=== PATIENT | female | born 1945 | race Caucasian/White ===

== ENCOUNTER → 2020-10-26 | Outpatient (CLI) | payer MEDICARE ==
[~2020-10-26] MED LIST: ANORO ELLIPTA1 EACH INH; BAYER CHEWABLE81 MG PO; BREO ELLIPTA 11 EACH INH; BREZTRI AEROS10.7 GM INH; CITALOPRAM HBR20 MG PO; CLARITIN10 M2 PO; COZAAR 25MG TAB25 MG PO; IPRAT-ALBUT 0.5-3 ML NEB; LASIX20 MG PO; LIPITOR20 MG PO; LOSARTAN-HCTZ1 EAC1 PO; MEDROL DOSEPAK 24 MG PO; MELOXICAM7.5 MG PO; OMNICEF 300 MG300 MG PO; PLAVIX75 MG PO; PRAVASTATIN SOD20 MG PO; PREDNISONE 10 M10 MG PO; STOOL SOFTENER1 EACH PO; SYMBICORT 16010.2 GM INH; VENTOLIN HFA 66.7 GM INH; VITAMIN A AND1 EACH PO; VITAMIN C 500500 MG PO; VITAMIN D350 MCG PO
[2020-10-26 16:21] LABS: RED BLOOD COUNT 3.83 M/UL (4.00-5.10)
[2020-10-26 16:39] LABS: BUN/CREATININE RATIO 31 (0-10)
[2020-10-27 08:13] LABS: THYROXINE (T4) 7.6 ug/dL (4.5-12.0); VITAMIN D, 25-HYDROXY 32.3 ng/mL (30.0-100.0)
== END ==
LOC: LAB 15:17
PROVIDERS: Nurse Practitioner Family
DX: J44.9 Chronic obstructive pulmonary disease, unspecified (principal); I10 Essential (primary) hypertension; R53.83 Other fatigue; K57.92 Diverticulitis of intestine, part unspecified, without perforation or abscess without bleeding; E78.5 Hyperlipidemia, unspecified; E55.9 Vitamin D deficiency, unspecified; E53.8 Deficiency of other specified B group vitamins; R10.9 Unspecified abdominal pain
CPT/HCPCS: 36415; 80053; 80061; 82607; 84436; 84443; 84480; 85025

== ENCOUNTER → 2020-12-09 | Outpatient (CLI) | payer MEDICARE | LOC: RAD 10:00 | DX: R10.32 Left lower quadrant pain (principal); K57.30 Diverticulosis of large intestine without perforation or abscess without bleeding | CPT/HCPCS: 74270 ==

== ENCOUNTER 2021-01-05 06:21 | Inpatient (IN) | payer MEDICARE ==
[~2021-01-05] VITALS: Ht 149.9 cm; Wt 37.6 kg
[~2021-01-05 06:21] MED LIST changes: -ANORO ELLIPTA1 EACH INH; -BREZTRI AEROS10.7 GM INH; -CITALOPRAM HBR20 MG PO; -CLARITIN10 M2 PO; -COZAAR 25MG TAB25 MG PO; -IPRAT-ALBUT 0.5-3 ML NEB; -LASIX20 MG PO; -LIPITOR20 MG PO; -MEDROL DOSEPAK 24 MG PO; -OMNICEF 300 MG300 MG PO; -PREDNISONE 10 M10 MG PO; -SYMBICORT 16010.2 GM INH; -VITAMIN A AND1 EACH PO; -VITAMIN C 500500 MG PO; -VITAMIN D350 MCG PO
[2021-01-05 07:04] LABS: HEMOGLOBIN 12.9 gm/dl (12.3-15.3); RED BLOOD COUNT 4.16 M/UL (4.00-5.10); WHITE BLOOD COUNT 7.4 K/UL (4.5-11.0)
[2021-01-05 07:27] LABS: BUN/CREATININE RATIO 41 (0-10)
[2021-01-05] MEDS ORDERED: SYMBICORT 16010.2 GM INH (11:19)
[2021-01-05] MEDS ORDERED: COZAAR 25MG TAB25 MG PO (11:19)
[2021-01-05] MEDS ORDERED: VITAMIN A AND1 EACH PO (11:20)
[2021-01-06 02:36] LABS: HEMOGLOBIN 12.8 gm/dl (12.3-15.3); RED BLOOD COUNT 4.12 M/UL (4.00-5.10); WHITE BLOOD COUNT 5.8 K/UL (4.5-11.0)
[2021-01-06 03:39] LABS: BUN/CREATININE RATIO 42 (0-10)
[2021-01-07 02:40] LABS: BUN/CREATININE RATIO 43 (0-10)
[2021-01-07] MEDS ORDERED: OMNICEF 300 MG300 MG PO (09:43)
[2021-01-07] MEDS ORDERED: IPRAT-ALBUT 0.5-3 ML NEB (09:43)
[2021-01-07] MEDS ORDERED: MEDROL DOSEPAK 24 MG PO (09:43)
[2021-01-07] MEDS ORDERED: CLARITIN10 M2 PO (09:47)
== END 2021-01-07 12:45 | disposition home or self-care (01) | DRG 189 ==
LOC: ER1 06:21 → CDU 09:32 → PROG CARE 09:51
PROVIDERS: Family Medicine; Physician Assistant Medical; ADMIT Internal Medicine
PROC: 5A09457 Assistance with Respiratory Ventilation, 24-96 Consecutive Hours, Continuous Positive Airway Pressure (ICD-10-PCS; principal; 2021-01-05)
DX: J96.01 Acute respiratory failure with hypoxia (principal); E43 Unspecified severe protein-calorie malnutrition; J44.0 Chronic obstructive pulmonary disease with (acute) lower respiratory infection; Z68.1 Body mass index [BMI] 19.9 or less, adult; J20.9 Acute bronchitis, unspecified; I25.10 Atherosclerotic heart disease of native coronary artery without angina pectoris; C53.9 Malignant neoplasm of cervix uteri, unspecified; Z66 Do not resuscitate; K57.90 Diverticulosis of intestine, part unspecified, without perforation or abscess without bleeding; I10 Essential (primary) hypertension; J96.02 Acute respiratory failure with hypercapnia; F17.210 Nicotine dependence, cigarettes, uncomplicated; Z20.822 Contact with and (suspected) exposure to COVID-19; E78.5 Hyperlipidemia, unspecified; Z90.49 Acquired absence of other specified parts of digestive tract; Z90.710 Acquired absence of both cervix and uterus; Z88.1 Allergy status to other antibiotic agents; Z82.49 Family history of ischemic heart disease and other diseases of the circulatory system; Z80.9 Family history of malignant neoplasm, unspecified; Z95.5 Presence of coronary angioplasty implant and graft
CPT/HCPCS: 0240U; 36415; 36600; 71045; 80048; 80053; 82550; 82553; 82803; 83735; 83874; 83880; 84484; 85025; 85027; 87040; 93005; 94640; 94660; 94664; 94760; 99285; J0696; J1650; J2920; J2930

== ENCOUNTER 2021-02-11 02:46 | Inpatient (IN) | payer MEDICARE ==
[~2021-02-11] VITALS: Ht 149.9 cm; Wt 40.8 kg
[~2021-02-11 02:46] MED LIST changes: +CLARITIN10 M2 PO; +COZAAR 25MG TAB25 MG PO; +IPRAT-ALBUT 0.5-3 ML NEB; +MEDROL DOSEPAK 24 MG PO; +OMNICEF 300 MG300 MG PO; +SYMBICORT 16010.2 GM INH; +VITAMIN A AND1 EACH PO
[2021-02-11 04:12] LABS: HEMOGLOBIN 13.2 gm/dl (12.3-15.3); RED BLOOD COUNT 4.23 M/UL (4.00-5.10); WHITE BLOOD COUNT 6.6 K/UL (4.5-11.0)
[2021-02-11 04:59] LABS: BUN/CREATININE RATIO 27 (0-10)
[2021-02-11] MEDS ORDERED: CITALOPRAM HBR20 MG PO (07:26)
[2021-02-11] MEDS ORDERED: ANORO ELLIPTA1 EACH INH (11:13)
[2021-02-11] MEDS ORDERED: LIPITOR20 MG PO (14:26)
[2021-02-11] MEDS ORDERED: VITAMIN D350 MCG PO (14:27)
[2021-02-11] MEDS ORDERED: VITAMIN C 500500 MG PO (14:27)
[2021-02-11] MEDS ORDERED: LASIX20 MG PO (14:38)
[2021-02-12 03:18] LABS: HEMOGLOBIN 11.9 gm/dl (12.3-15.3); RED BLOOD COUNT 3.77 M/UL (4.00-5.10); WHITE BLOOD COUNT 5.9 K/UL (4.5-11.0)
[2021-02-12 03:37] LABS: BUN/CREATININE RATIO 30 (0-10)
[2021-02-14] MEDS ORDERED: BREZTRI AEROS10.7 GM INH (09:37)
[2021-02-14] MEDS ORDERED: PREDNISONE 10 M10 MG PO (09:42)
== END 2021-02-14 16:35 | disposition home or self-care (01) | DRG 189 ==
LOC: ER1 02:46 → CDU 08:53 → PROG CARE 10:55
PROVIDERS: Emergency Medicine; Physician Assistant; ADMIT Internal Medicine
DX: J96.22 Acute and chronic respiratory failure with hypercapnia (principal); J44.1 Chronic obstructive pulmonary disease with (acute) exacerbation; J96.21 Acute and chronic respiratory failure with hypoxia; C80.1 Malignant (primary) neoplasm, unspecified; I10 Essential (primary) hypertension; Z66 Do not resuscitate; R05 Cough; D75.89 Other specified diseases of blood and blood-forming organs; R00.0 Tachycardia, unspecified; F17.210 Nicotine dependence, cigarettes, uncomplicated; Z99.81 Dependence on supplemental oxygen; Z79.01 Long term (current) use of anticoagulants; Z85.42 Personal history of malignant neoplasm of other parts of uterus; Z79.899 Other long term (current) drug therapy; Z90.710 Acquired absence of both cervix and uterus; Z90.49 Acquired absence of other specified parts of digestive tract; Z88.1 Allergy status to other antibiotic agents; Z82.49 Family history of ischemic heart disease and other diseases of the circulatory system; Z80.9 Family history of malignant neoplasm, unspecified
CPT/HCPCS: 0240U; 36415; 36600; 71045; 80048; 80053; 82550; 82553; 82607; 82746; 82803; 83605; 83690; 83880; 84484; 85025; 87040; 93005; 94640; 94660; 94664; 94760; 96374; 96375; 99285; J0696; J2920; J2930; J7030; Q9967